=== PATIENT | male | born 1940 | race Caucasian/White ===

== ENCOUNTER 2024-12-04 10:51 | Outpatient (CLI) | payer MEDICARE, BC ==
[~2024-12-04 10:51] MED LIST: ASPI81TA52 PO; METO1TAB25 PO; NITR0.4T51 SL; SIMV-42 PO; SOLI5TAB2 PO
--- NOTE | 2024-12-04 14:13 | RADIOLOGY REPORT ---
[facility] INDICATION: SPONDYLOSIS WITH RADICULOPATHY; FALL COMPARISON: None TECHNIQUE: 5 views of the cervical spine were obtained. FINDINGS: The cervical vertebral alignment is normal. The predental space is normal. Advanced degenerative changes at C2-C3 through C6-C7 causing moderate to severe neural foraminal and spinal canal stenosis No acute fracture, vertebral compression deformity or aggressive osseous lesions. The imaged lung apices are unremarkable. IMPRESSION: No acute fracture.
--- NOTE | 2024-12-04 14:14 | RADIOLOGY REPORT ---
[facility] INDICATION: SPONDYLOSIS WITH RADICULOPATHY; FALL COMPARISON: None TECHNIQUE:3 views of the thoracic spine were obtained. FINDINGS: The thoracic vertebral alignment is normal. Multilevel degenerative changes most severe at T3-T4 through T6-C7 causing moderate to severe neural foraminal stenosis No acute fracture, vertebral compression deformity or aggressive osseous lesions. The imaged thorax and abdomen are grossly unremarkable. IMPRESSION: No acute fracture.
== END 2024-12-04 23:59 | disposition home or self-care (01) ==
LOC: RAD 10:51
PROVIDERS: ATTEND Specialist
DX: M47.23 Other spondylosis with radiculopathy, cervicothoracic region (principal)
CPT/HCPCS: 72040; 72070